=== PATIENT | female | born 1990 | race Caucasian/White ===

== ENCOUNTER 2018-10-04 06:36 | Day surgery (SDC) | payer OTHER ==
[~2018-10-04] VITALS: Ht 165.1 cm; Wt 58.2 kg
[~2018-10-04 06:36] MED LIST: ALBU6.7H INH; ALPR-475 PO; BACITRACIN 50,000 UNIT ONE; BACITRACIN OINT 500U/GM, 15 GM ONE; EPINEPHRINE TOPICAL SOLN 1 MG/ML, 30ML ONE; ETON68IM3 IMPLANT; FLUORESCEIN SODIUM 500 MG/5 ML ONE; LIDOCAINE 1%-EPI 1:100K, 30ML ONE; OXYMETAZOLINE NASAL SPRAY 0.05%, 15ML ONE
[2018-10-04] MEDS ORDERED: LACTATED RINGERS 1,000 ML IV SCH (07:00)
[2018-10-04 07:03] VITALS: BP 110/77
[2018-10-04] MEDS ORDERED: MIDAZOLAM 1 MG/ML, 2ML ONE (08:03)
[2018-10-04] MEDS ORDERED: FENTANYL PF 250 MCG/5ML ONE (08:03)
[2018-10-04 08:07] LABS: HCG UR SG 1.023 (1.003-1.030)
[2018-10-04] MEDS ORDERED: PHENYLEPHRINE 10 MG/ML ONE (08:23)
[2018-10-04] MEDS ORDERED: ONDANSETRON 2MG/ML, 2ML IV PRN (09:00)
[2018-10-04] MEDS ORDERED: HYDROmorphone 2 MG/ML, 1ML IVPush PRN (09:00)
[2018-10-04] MEDS ORDERED: ONDANSETRON ODT 8 MG PO PRN (09:00)
[2018-10-04] MEDS ORDERED: FENTANYL PF 100 MCG/2ML IV PRN (09:00)
[2018-10-04] MEDS ORDERED: ACETAMINOPHEN 325 MG TABLET PO PRN (09:00)
[2018-10-04] MEDS ORDERED: LORazepam 2 MG/ML, 1ML IVPush PRN (09:00)
[2018-10-04] MEDS ORDERED: OXYcodone 5 MG/5 ML ORAL.SOL UDC PO PRN (09:00)
[2018-10-04] MEDS ORDERED: PROMETHAZINE 25 MG/ML, 1ML IV PRN (09:00)
[2018-10-04] MEDS ORDERED: MEPERIDINE/PF 25MG/0.5ML IVPush PRN (09:00)
[2018-10-04] MEDS ORDERED: CEFAZOLIN 1,000 MG ONE (09:03)
[2018-10-04] MEDS ORDERED: NEOSTIGMINE 1 MG/ML, 10ML ONE (09:03)
[2018-10-04] MEDS ORDERED: ONDANSETRON 2MG/ML, 2ML ONE (09:03)
[2018-10-04] MEDS ORDERED: GLYCOPYRROLATE 0.2MG/1ML, 5ML ONE (09:03)
[2018-10-04] MEDS ORDERED: DEXAMETHASONE 4 MG/ML, 1ML ONE (09:03)
[2018-10-04] MEDS ORDERED: ROCURONIUM 10MG/ML,5ML ONE (09:03)
[2018-10-04] MEDS ORDERED: SUCCINYLCHOLINE 20 MG/ML, 10ML ONE (09:03)
[2018-10-04] MEDS ORDERED: PROPOFOL 10 MG/ML, 20ML ONE (09:03)
[2018-10-04] MEDS ORDERED: FUROSEMIDE 20 MG/2 ML IV ONE (10:00)
== END 2018-10-04 13:25 | disposition home or self-care (01) ==
LOC: OUT 06:36
PROVIDERS: ATTEND Otolaryngology
DX: J34.2 Deviated nasal septum (principal); J32.0 Chronic maxillary sinusitis; J32.2 Chronic ethmoidal sinusitis; J34.3 Hypertrophy of nasal turbinates; J33.9 Nasal polyp, unspecified; J45.909 Unspecified asthma, uncomplicated; F41.9 Anxiety disorder, unspecified; F32.9 Major depressive disorder, single episode, unspecified; D64.9 Anemia, unspecified; G43.909 Migraine, unspecified, not intractable, without status migrainosus; Z88.1 Allergy status to other antibiotic agents; Z91.041 Radiographic dye allergy status
CPT/HCPCS: 30140; 30520; 31240; 31257; 31267; 61782; 81025; 87070; 87075; 87077; 87147; 87186; 87205; 88304; J0330; J0690; J1100; J2250; J2370; J2405; J2704; J2710; J3010; J3490; J7120